=== PATIENT | male | born 1930 | race Caucasian/White ===

== ENCOUNTER → 2019-01-16 13:08 | Outpatient (CLI) | payer MEDICARE, OTHER | END | disposition home or self-care (01) | LOC: D.LAB 13:08 | PROVIDERS: ATTEND Urology | DX: N40.0 Benign prostatic hyperplasia without lower urinary tract symptoms (principal) ==

== ENCOUNTER 2019-02-05 08:15 | Day surgery (SDC) | payer MEDICARE, OTHER ==
[2019-02-03 13:30] LABS: ANION GAP 7.8 mmol/L (8-16); CALCIUM 8.8 mg/dL (8.5-10.1); CARBON DIOXIDE 31.5 mmol/L (21.0-32.0); CREATININE - SERUM 1.1 mg/dL (0.6-1.3); POTASSIUM - SERUM 4.3 mmol/L (3.5-5.1)
[2019-02-03 13:51] LABS: BASOPHILS 0.5 % (0-2); EOSINOPHILS 2.2 % (0-7); HEMATOCRIT 40.1 % (42.0-54.0); HEMOGLOBIN 14.4 g/dL (13.5-17.5); IMMATURE GRANULOCYTES 0.6 % (0-5); LYMPHOCYTES 22.2 % (15-50); MCH 33.6 pg (26.0-34.0); MCHC 35.9 g/dL (31.0-37.0); MCV 93.7 fL (80.0-100.0); MEAN PLATELET VOLUME 9.5 fL (7.4-10.4); MONOCYTES 8.4 % (2-11); NEUTROPHILS 66.1 % (40-80); PLATELET COUNT 221 10x3/uL (130-400); RBC 4.28 10x6/uL (4.20-6.10); RDW 12.9 % (11.5-14.5); WBC 8.2 10x3/uL (4.8-10.8)
[~2019-02-05] VITALS: Ht 177.8 cm; Wt 67.1 kg
[~2019-02-05 08:15] MED LIST: ALENDRONATE SOD35 MG PO; DONEPEZIL HCL10 MG PO; SYNTHROID25 MCG PO
[2019-02-05 09:28] VITALS: BP 138/68; Ht 177.8 cm; Wt 67.1 kg
--- NOTE | 2019-02-05 14:50 | NUR ---
1310-REC'D FROM RR. DROWSY, EASILY AROUSED,DENIES COMPLAINTS. IV PATENT TO RIGHT HAND.VSS AT BEDSIDE,CL IN EASY REACH.FULL LIQUID TRAY TO ROOM.
--- NOTE | 2019-02-05 14:51 | NUR ---
1410-ABLE TO AMBULATE AND URINATE WITHOUT DIFFICULTIES. VSS. DISCHARGE CRITERIA MET. REMOVED IV FROM RIGHT HAND WITH CATH INTACT, DISPOSED INTO SHARPS CONTAINER. COVERED WITH BANDAID. REVIEWED DISCHARGE INSTRUCTIONS WITH PT AND . VERBALIZED UNDERSTANDING. ESCORTED OUT VIA W/C WITH DRIVING HOME. DISCHARGE PAPERS IN HAND
== END 2019-02-05 14:10 | disposition home or self-care (01) ==
LOC: D.OPS 08:15
PROVIDERS: Anesthesiology; ATTEND Urology
DX: N40.1 Benign prostatic hyperplasia with lower urinary tract symptoms (principal); N13.8 Other obstructive and reflux uropathy